=== PATIENT | male | born 1975 | race Two or more races ===

== ENCOUNTER 2017-12-19 01:54 | Emergency (ER) | payer OTHER ==
[2017-12-19] MEDS ORDERED: KETOROLAC 60 MG/2 ML VIAL IM STA (02:08)
[2017-12-19] MEDS ORDERED: DEXAMETHASONE 10 MG/ML VIAL PO STA (02:08)
[2017-12-19] MEDS ORDERED: AMOX/CLAV 875 MG/125 MG TABLET PO STA (02:08)
[2017-12-19] MEDS ORDERED: PSEUDOEPHEDRINE 30 MG TABLET PO STA (02:08)
--- NOTE | 2017-12-19 02:34 | ED Physician Documentation ---
PD HPI HEENT - Stated complaint Stated Complaint: SOA - Chief complaint Chief Complaint: Resp - History obtained from History obtained from: Patient - History of Present Illness Timing - onset: Yesterday Timing - details: Gradual onset, Still present Location: Throat Improves: Medication Worsens: Swalllowing Associated symptoms: Congestion, Swollen nodes. No: Fever Similar symptoms before: Has not had sx before Recently seen: Not recently seen - Additional information Additional information: Patient is a 42 year old male with no significant past medical history who is presenting to the emergency department with congestion and trouble breathing. Patient states that yesterday he had a bit of a sore throat and used some throat spray. Patient states that he woke up from sleep tonight because he was congested and felt like he couldn't catch his breath. Review of Systems Constitutional: denies: Fever, Chills Eyes: reports: Reviewed and negative Ears: denies: Ear pain, Drainage/discharge Nose: reports: Congestion, Sinus pressure / pain Throat: reports: Sore throat, Swollen tonsils Cardiac: reports: Reviewed and negative Respiratory: reports: Dyspnea. denies: Cough, Wheezing GI: denies: Nausea, Vomiting : reports: Reviewed and negative Skin: denies: Rash, Lesions Musculoskeletal: denies: Neck pain, Back pain Neurologic: denies: Generalized weakness, Focal weakness Immunocompromised: denies: Immunocompromised PD PAST MEDICAL HISTORY - Past Medical History Past Medical History: Yes Cardiovascular: Hypertension Musculoskeletal: Chronic back pain - Past Surgical History Past Surgical History: No - Present Medications Home Medications: Ambulatory Orders Medication Instructions Recorded Confirmed Amox/Clav 875/125 [Augmentin] 1 each PO Q12H #14 tablet 12/19/17 Lisinopril 20 mg PO DAILY 12/19/17 12/19/17 Oxycodone HCl/Acetaminophen 1 tab PO Q4HR PRN 12/19/17 12/19/17 [Oxycodone-Acetaminophen 5-325] - Allergies Allergies/Adverse Reactions: Allergies Allergy/AdvReac Type Severity Reaction Status Date / Time No Known Drug Allergies Allergy Verified 12/19/17 02:04 - Social History Does the pt smoke?: No Smoking Status: Never smoker Does the pt drink ETOH?: Yes Does the pt have substance abuse?: No - Immunizations Immunizations are current?: Yes - POLST Patient has POLST: No PD ED PE NORMAL - Vitals Vital signs reviewed: Yes - General General: Alert and oriented X 3, No acute distress - HEENT HEENT: Atraumatic, PERRL, Moist mucous membranes, Dentition benign - Cardiac Cardiac: RRR, No murmur - Respiratory Respiratory: No respiratory distress - Abdomen Abdomen: Soft, Non tender, Non distended - Derm Derm: Normal color, Warm and dry - Extremities Extremities: No deformity - Neuro Neuro: Alert and oriented X 3, No motor deficit, Normal speech Eye Opening: Spontaneous Motor: Obeys Commands Verbal: Oriented GCS Score: 15 - Psych Psych: Normal mood PD ED PE EXPANDED - HEENT HEENT: Nasal congestion, Rhinorrhea, Pharyngeal erythema, Swollen tonsils, Other (enlarged uvula) Results - Vitals Vitals: Vital Signs - 24 hr 12/19/17 02:00 Temperature 36.1 C L Heart Rate 70 Respiratory 18 Rate Blood Pressure 161/109 H O2 Saturation 100 Oxygen O2 Source Room air - Labs Labs: Laboratory Tests 12/19/17 02:00 Group A Strep Rapid Negative PD MEDICAL DECISION MAKING - ED course Complexity details: reviewed old records, reviewed results, re-evaluated patient , considered differential, d/w patient ED course: Patient was seen and examined at bedside. Patient's findings were consistent with uvulitis. Patient was treated with decadron, toradol and augmentin. rapid strep was negative. Patient was the second patient of the evening with the same symptoms but there doesn't seem to be a connection at this point. Patient was able to tolerate PO and swallow his secretions. Patient was fully vaccinated. Patient required no further inpatient work up at this time and was stable for discharge with outpatient follow up. Departure - Departure Disposition: 01 Home, Self Care Clinical Impression: Uvulitis Condition: Good Instructions: ED Uvulitis Follow-Up: Meir Cantu MD [Primary Care Provider] - Within 3 Days Prescriptions: Amox/Clav 875/125 [Augmentin] 1 each PO Q12H #14 tablet Comments: Your symptoms today are being caused by uvulitis. It can be caused by infection or irritation. You are being started on antibiotics that you will take twice a day for 2 weeks. you should also try gargling with salt water. You can take motrin or tylenol as needed for pain. You should follow up with your doctor if your symptoms don't improve. You may return to the emergency department at any time for new, worsening or uncontrollable symptoms.
[2017-12-19 02:43] VITALS: BP 144/99
== END 2017-12-19 02:43 | disposition home or self-care (01) ==
LOC: ED 01:54
DX: K12.2 Cellulitis and abscess of mouth (principal); I10 Essential (primary) hypertension
CPT/HCPCS: 87070; 87430; 96372; 99283; A9270

== ENCOUNTER 2019-10-30 07:58 | Outpatient (CLI) | payer OTHER ==
--- NOTE | 2019-10-30 14:20 | MRI Report ---
Reason: CHRONIC PAIN Procedure Date: 10/30/2019 Accession Number: [id number] / [id number] Procedure: MRI - Lumbar Spine W/O CPT Code: Final Report FULL RESULT: EXAM: MRI LUMBAR SPINE WITHOUT CONTRAST EXAM DATE: 10/30/2019 09:06 AM. CLINICAL HISTORY: Chronic low back pain. Right lower extremity radiculopathy. COMPARISON: None. TECHNIQUE: Multiplanar, multisequence T1-weighted and fluid-sensitive sequences of the lumbar spine from T12 to S1 without contrast. Other: None. FINDINGS: Spinal Canal: The conus terminates at L1-L2. The conus medullaris and cauda equina are unremarkable. Alignment: No scoliosis or spondylolisthesis. Bone Marrow: Five [id number] lumbar vertebral bodies are assumed. No gross fractures or bone lesions. No bone marrow replacement. Disk Levels/Facets: L5-S1: Mild type II degenerative endplate changes. Small broad-based posterior central disk protrusion. Minimal left foraminal narrowing. L4-L5: Small to moderate sized posterior central to right paracentral disk extrusion. Mild canal stenosis and moderate to severe right subarticular zone stenosis. Mild right foraminal stenosis. L3-L4: Tiny posterior central disk protrusion. Small left foraminal-extraforaminal disk protrusion. Small Schmorl's node at the left minimal canal narrowing. Mild left and minimal right foraminal stenoses. L2-L3: Tiny posterior central disk protrusion. No stenoses. L1-L2: Unremarkable. T12-L1: Unremarkable. Musculature: Normal. No edema or fatty atrophy. Other: Small subcentimeter cysts at the left kidney. IMPRESSION: 1. Multilevel degenerative disk changes. The more significant levels are L4-L5 and L3-L4. 2. Small to moderate sized posterior central to right paracentral disk extrusion at L4-L5 which causes mild canal stenosis and moderate to severe right subarticular zone stenosis. Clinical correlation with regards to right L5 radiculopathy. Mild right foraminal stenosis. 3. Small left foraminal-extraforaminal disk protrusion at L3-L4. Mild left and minimal right foraminal stenoses. Comment: The following findings are so common in adults without low back pain that while we report their presence, they must be interpreted with caution and in the context of the clinical situation. (Reference Tayo et al, Spine 2001) Prevalence of findings in patients without low back pain: Disk degeneration (any evidence): 92% Disk desiccation/T2 signal loss: 83% Disk height loss: 56% Disk bulge: 64% Disk protrusion: 32% Annular tear/high intensity zone: 38% RADIA
== END 2019-10-30 07:59 | disposition home or self-care (01) ==
LOC: DI 07:58
PROVIDERS: ATTEND Physician Assistant Surgical
DX: M51.17 Intervertebral disc disorders with radiculopathy, lumbosacral region (principal); M51.16 Intervertebral disc disorders with radiculopathy, lumbar region; M48.061 Spinal stenosis, lumbar region without neurogenic claudication
CPT/HCPCS: 72148

== ENCOUNTER 2020-07-25 12:43 | Emergency (ER) | payer OTHER ==
[2020-07-25] MEDS ORDERED: KETOROLAC 60 MG/2 ML VIAL IM STA (14:22)
[2020-07-25] MEDS ORDERED: HYDROmorphone 1 MG/ML CARPUJECT IM STA (14:22)
--- NOTE | 2020-07-25 14:23 | ED Physician Documentation ---
PD HPI BACK PAIN - Stated complaint Stated Complaint: BACK PAIN - Chief complaint Chief Complaint: Back Pain - History obtained from History obtained from: Patient - Additional information Additional information: Gentleman has chronic right-sided sciatica and occasional severe back pain. Since this morning he has had pain in the right low back radiating into the buttock. He tried oxycodone for without relief. He denies any new numbness noting chronic numbness in the right leg. He denies saddle anesthesia or fevers. No incontinence. Review of Systems Constitutional: denies: Fever, Chills Cardiac: denies: Chest pain / pressure, Palpitations Respiratory: denies: Dyspnea, Cough PD PAST MEDICAL HISTORY - Past Medical History Past Medical History: Yes Cardiovascular: Hypertension Respiratory: None Neuro: None Endocrine/Autoimmune: None GI: None : None HEENT: None Psych: None Musculoskeletal: None, Chronic back pain Derm: None - Past Surgical History Past Surgical History: No - Present Medications Home Medications: Ambulatory Orders Medication Instructions Recorded Confirmed Amox/Clav 875/125 [Augmentin] 1 each PO Q12H #14 tablet 12/19/17 Oxycodone HCl/Acetaminophen 1 tab PO Q4HR PRN 12/19/17 12/19/17 [Oxycodone-Acetaminophen 5-325] lisinopriL [Lisinopril] 20 mg PO DAILY 12/19/17 12/19/17 Cyclobenzaprine [Flexeril] 10 mg PO TID PRN #14 tablet 07/25/20 predniSONE [Deltasone] 20 mg PO [id number] #21 tab 07/25/20 - Allergies Allergies/Adverse Reactions: Allergies Allergy/AdvReac Type Severity Reaction Status Date / Time No Known Drug Allergies Allergy Verified 12/19/17 02:04 - Social History Does the pt smoke?: No Smoking Status: Never smoker Does the pt drink ETOH?: Yes Does the pt have substance abuse?: No - Immunizations Immunizations are current?: Yes - POLST Patient has POLST: No PD ED PE NORMAL - Vitals Vital signs reviewed: Yes - General General: Alert and oriented X 3, Other (Is uncomfortable) - Abdomen Abdomen: Normal bowel sounds, Soft, Non tender - Back Back: No spinal TTP, Other (Tender in the right sciatic notch, no other back tenderness. He has a lidocaine patch in place.) - Extremities Extremities: Other (The patient has equal and normal Achilles and patellar reflexes bilaterally. Normal sensation in all areas of the legs. Patient denies saddle anesthesia. Normal strength in flexion-extension at the ankles, knees, and flexion of the hips.) - Neuro Neuro: No motor deficit, No sensory deficit Results - Vitals Vitals: Vital Signs - 24 hr 07/25/20 07/25/20 12:54 14:42 Temperature 36.8 C Heart Rate 88 74 Respiratory 14 18 Rate Blood Pressure 148/94 H 149/104 H O2 Saturation 98 96 Oxygen O2 Source Room air PD MEDICAL DECISION MAKING - ED course ED course: 45-year-old gentleman under chronic pain management for chronic back pain. CASHIER HOST/HOSTESS and FARHAT E reviewed. No evidence of ER or doctor shopping. He presents today with an exacerbation of his pain. There are no red flags. Doing better and ambulatory after 1 mg of Dilaudid and 60 mg of Toradol IM. Departure - Departure Disposition: Home, Self Care Clinical Impression: Acute exacerbation of chronic low back pain Condition: Good Record reviewed to determine appropriate education?: Yes Instructions: ED Neck Back Pain General Prescriptions: predniSONE [Deltasone] 20 mg PO [id number] #21 tab Cyclobenzaprine [Flexeril] 10 mg PO TID PRN #14 tablet PRN Reason: Spasms Comments: Continue your regular pain management meds, return for new or worsening symptoms. Follow-up with your doctor at [facility] for further evaluation and treatment.
[2020-07-25 14:43] VITALS: BP 149/104
[2020-07-25] MEDS ORDERED: predniSONE 20 MG TABLET PO STA (15:14)
[2020-07-25] MEDS ORDERED: CYCLOBENZAPRINE 10 MG TABLET PO STA (15:14)
== END 2020-07-25 15:30 | disposition home or self-care (01) ==
LOC: ED 12:43
DX: M54.41 Lumbago with sciatica, right side (principal); G89.29 Other chronic pain; I10 Essential (primary) hypertension
CPT/HCPCS: 96372; 99283; A9270; J1170; J7512